=== PATIENT | male | born 1950 | race Caucasian/White ===

== ENCOUNTER → 2020-01-29 13:11 | Outpatient (CLI) | payer OTHER, SELFPAY ==
--- NOTE | ~2020-01-29 | CT_ITS ---
EXAMINATION: CT chest wo con DATE: 01/29/2020 13:33 INDICATION: Tobacco use, emphysema TECHNIQUE: Computed tomography (CT) of the chest was performed without intravenous contrast. The dose -length product (DLP) was 219.83 mGy-cm. Automated exposure control and iterative reconstruction tech [employer] were employed. COMPARISON: 05/03/2015 FINDINGS: Scarring is present in the lung apices. There is severe emphysema. The lungs are free of ac roman opacities. There is no pleural effusion or pneumothorax. Cardiomegaly is noted. There is coronary artery atherosclerosis. Bilateral gynecomastia is noted. There is a 4.2 cm fusiform aneurysm of the ascending aorta. A stable 1.5 x 1.3 cm right hilar lymph node is noted, most likely reactive given in terval stability. There is mild thoracic spondylosis. IMPRESSION: 1. Severe emphysema. 2. Stable fusiform aneurysm of the ascending aorta. Reviewed, dictated and finalized at location B.
== END ==
PROVIDERS: PCP Family Medicine; Visit Provider Family Medicine
DX: J43.9 Emphysema, unspecified (principal); Z72.0 Tobacco use; I71.2 Thoracic aortic aneurysm, without rupture
CPT/HCPCS: 71250

== ENCOUNTER 2021-03-24 14:22 | Outpatient (CLI) | payer OTHER, SELFPAY ==
--- NOTE | ~2021-03-24 | CT_ITS ---
EXAMINATION: CT lung screening DATE: 03/24/2021 14:44 INDICATION: Personal history of tobacco dependence, current smoker with 50 pack year history TECHNIQUE: Computed tomography (CT) of the chest was performed without intravenous contrast. The dose -length product (DLP) was 94.07 mGy-cm. 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 COMPARISON: 01/29/2020 FINDINGS: There is severe emphysema. Scarring is noted in the lung apices. There is a 4 mm nodule of the left lower lobe on image 66. There is mild dependent atelectasis. The lungs are free of focal air space opacities. There is no pleural effusion or pneumothorax. Cardiomegaly is noted. There is calcif ied coronary artery atherosclerosis. There is a stable 4.2 cm fusiform aneurysm of the ascending aort a. No pathologically enlarged thoracic lymph nodes are identified. IMPRESSION: 1. Lung-RADS category 2: Benign appearance or behavior. Continue annual screening with noncontrast lo w-dose chest CT in 12 months. Reviewed, dictated and finalized at location A. IMPRESSION: 1. Lung-RADS category 2: Benign appearance or behavior. Continue annual screeni ng with noncontrast low-dose chest CT in 12 months.
== END 2021-03-24 14:23 | disposition home or self-care (01) ==
LOC: ANHIMG 14:27
PROVIDERS: PCP Family Medicine; Visit Provider Family Medicine
DX: I71.2 Thoracic aortic aneurysm, without rupture (principal); J43.9 Emphysema, unspecified; Z87.891 Personal history of nicotine dependence
CPT/HCPCS: 71271

== ENCOUNTER → 2021-09-12 03:15 | Outpatient (CLI) | payer OTHER, SELFPAY ==
[2021-09-12 10:58] LABS: SARS-CoV-2 RNA PCR Negative
== END ==
PROVIDERS: PCP Family Medicine; Visit Provider Internal Medicine Gastroenterology
DX: Z01.812 Encounter for preprocedural laboratory examination (principal); Z20.822 Contact with and (suspected) exposure to COVID-19
CPT/HCPCS: C9803; U0003; U0005

== ENCOUNTER 2021-09-15 00:06 | Day surgery (SDC) | payer OTHER, SELFPAY ==
[2021-09-01 14:06] VITALS: BMI 24.3
[2021-09-15 06:25] VITALS: BP 128/81; PULSE 62; RESP 18; TEMP 36.1; O2SAT 100
[2021-09-15] MEDS: LACTATED RINGERS 1,000 ML 150 ML IV CONT (06:36)
--- NOTE | 2021-09-15 06:49 | WPDANESEPPF ---
Anes - Initial Pre Proc Eval Procedure: Operation Date: 09/15/21 07:30 Proposed Procedures p Screening Colonoscopy - Phil Valero MD Date/Time: 09/15/21 06:49 Surgeon: Phil Valero MD Pre Op Diagnosis: hx of colon polyps Patient Data Age: 71 Gender: M Height: 1.73 m Weight: 70.8 kg Last Vital Signs Temp 36.1 C L 09/15/21 06:25 Pulse 62 09/15/21 06:25 Resp 18 09/15/21 06:25 BP 128/81 09/15/21 06:25 Pulse Ox 100 09/15/21 06:25 Allergies Allergy/AdvReac Type Severity Reaction Status Date / Time morphine Allergy Severe HIVES Verified 09/15/21 06:24 Home Medications Medication Instructions Recorded Confirmed Type aspirin 81 mg tablet,delayed 81 mg PO DAILY 01/30/20 09/01/21 History release bupropion HCl 150 mg tablet,12 hr 150 mg PO BID #60 tablet 11/30/20 09/01/21 Rx sustained-release fluticasone fur. 100 mcg-umeclid 1 inh INHALATION DAILY #60 each 03/16/21 09/01/21 Rx 62.5 mcg-vilant 25 mcg inhalat.powder tamsulosin 0.4 mg capsule 0.4 mg PO DAILY #90 cap 05/05/21 09/01/21 Rx atorvastatin 40 mg tablet 40 mg PO QPM #90 tablet 07/20/21 09/01/21 Rx lisinopril 2.5 mg tablet 2.5 mg PO BID #180 tablet 07/20/21 09/01/21 Rx Patient hx anesthesia problems: none Family hx anesthesia problems: none Results Review: All pre-operative results and documents have been reviewed as part of the pre-operative evaluation. [facility] Past Medical History Medical History Aortic atherosclerosis Ascending aortic aneurysm Benign essential HTN Borderline diabetes mellitus CAD (coronary artery disease), [place] coronary artery Chronic kidney disease, stage 3a Colon polyp Congestion of nasal sinus COPD (chronic obstructive pulmonary disease) Coronary stent patent Coughing Emphysema of lung Heart attack History of CVA (cerebrovascular accident) without residual deficits History of CT (myocardial infarction) Hypertension Left knee DJD Major depressive disorder, recurrent, moderate Mixed hyperlipidemia Peripheral vascular disease, unspecified Shortness of breath Tobacco abuse Wears glasses Surgical History Surgical History History of hernia repair History of knee surgery meniscus repair, Dr. Yazmin Nunez of cardiac catheterization Family History Family History Other Acute myocardial infarction Arthritis Depression Diabetes mellitus Heart disease Hypertension Social History Social History (System 03/22/21 @ 12:39 by Carley Gardner) Social History: , has a live in partner, retired Smoking packs per day: 1 Smoking cigarettes per day: 20.0 Years smoked: 50 Smoking pack-years: 50.00 Smoking status: Former smoker Tobacco type: cigarettes Second hand tobacco smoke exposure: Yes Smoking end date: 06/25/17 Additional smoking assessment comments: last 2 years 2 ppd Alcohol intake: current Drinks per week: 2 Substance use: never Substance use type: does not use Gender identity (if verbalized by the patient): Male Sexual Orientation (if Verbalized by the Patient): Straight or Heterosexual Spiritual care concerns: No Agree to blood products: Yes Anes - Eval Final PreProcedure Day of Procedure 09/15/21 06:49 Patient weight: normal Heart: regular rate and rhythm Lungs: clear to auscultation and normal air movement Airway: Mallampati scale class II Neurological: alert and oriented Last oral intake: >/= 8 hours ASA classification: III Emergent: no Anesthetic plan: proceed Anesthesia type and monitoring: general GIVS and standard monitoring Results Review: All pre-operative results and documents have been reviewed as part of the pre-operative evaluation. Informed Consent: The patient's anesthetic plan and its attendant risks and benefits were discussed with the patient/fam
--- NOTE | 2021-09-15 07:20 | WPDGICN ---
Assessment and Plan Assessment and plan (1) History of colon polyps: Code(s): Z86.010 - Personal history of colonic polyps Status: Acute Assessment and Plan: Patient has a history of colon polyp removed from the colon 2018. Plan is for surveillance colonoscopy now and consider this at intervals in the future. Further recommendations will be given after endoscopy. GI Consult Note Consult date/time: 09/15/21 07:20 HPI: Everton Ochoa Sr. is a 71 year old male Presents for screening colonoscopy. Patient was found to have benign adenomatous colon polyp removed from the colon 2018. Patient presents today for surveillance colonoscopy. Patient reports current weight appetite and bowel movements are normal. He denies abdominal pain. He has had no bleeding. Family history is noncontributory. Review of Systems Review of Systems: All systems reviewed & are unremarkable except as noted in HPI and below PMFSH Past Medical History Medical History Aortic atherosclerosis Ascending aortic aneurysm Benign essential HTN Borderline diabetes mellitus CAD (coronary artery disease), [place] coronary artery Chronic kidney disease, stage 3a Colon polyp Congestion of nasal sinus COPD (chronic obstructive pulmonary disease) Coronary stent patent Coughing Emphysema of lung Heart attack History of CVA (cerebrovascular accident) without residual deficits History of [place] (myocardial infarction) Hypertension Left knee DJD Major depressive disorder, recurrent, moderate Mixed hyperlipidemia Peripheral vascular disease, unspecified Shortness of breath Tobacco abuse Wears glasses Surgical History Surgical History History of hernia repair History of knee surgery meniscus repair, Dr. Arce Hx of cardiac catheterization Family History Family History Other Acute myocardial infarction Arthritis Depression Diabetes mellitus Heart disease Hypertension Social History Social History (System 03/22/21 @ 12:39 by Carley Gardner) Social History: , has a live in partner, retired Smoking packs per day: 1 Smoking cigarettes per day: 20.0 Years smoked: 50 Smoking pack-years: 50.00 Smoking status: Former smoker Tobacco type: cigarettes Second hand tobacco smoke exposure: Yes Smoking end date: 06/25/17 Additional smoking assessment comments: last 2 years 1/2 ppd Alcohol intake: current Drinks per week: 2 Substance use: never Substance use type: does not use Gender identity (if verbalized by the patient): Male Sexual Orientation (if Verbalized by the Patient): Straight or Heterosexual Spiritual care concerns: No Agree to blood products: Yes Meds Home Medications and Allergies Home Medications Medication Instructions Recorded Confirmed Type aspirin 81 mg tablet,delayed 81 mg PO DAILY 01/30/20 09/01/21 History release bupropion HCl 150 mg tablet,12 hr 150 mg PO BID #60 tablet 11/30/20 09/01/21 Rx sustained-release fluticasone fur. 100 mcg-umeclid 1 inh INHALATION DAILY #60 each 03/16/21 09/01/21 Rx 62.5 mcg-vilant 25 mcg inhalat.powder tamsulosin 0.4 mg capsule 0.4 mg PO DAILY #90 cap 05/05/21 09/01/21 Rx atorvastatin 40 mg tablet 40 mg PO QPM #90 tablet 07/20/21 09/01/21 Rx lisinopril 2.5 mg tablet 2.5 mg PO BID #180 tablet 07/20/21 09/01/21 Rx Allergies Allergy/AdvReac Type Severity Reaction Status Date / Time morphine Allergy Severe HIVES Verified 09/15/21 06:24 Vital Signs Vital Signs - 24 hr 09/15/21 06:25 Temperature 97.0 F L Pulse Rate 62 Respiratory Rate 18 Blood Pressure 128/81 Pulse Oximetry 100 Exam Narrative: Physical exam reveals patient to be alert. Vital signs stable. HEENT exam is unremarkable. Patient is anicteric. Lungs are clear to auscultation an
[2021-09-15 07:58] VITALS: BP 102/62; PULSE 68; RESP 12; O2SAT 97
[2021-09-15 08:08] VITALS: BP 121/71; PULSE 58; RESP 20; O2SAT 100
[2021-09-15 08:18] VITALS: BP 111/76; PULSE 54; RESP 18; O2SAT 96
== END 2021-09-15 08:25 | disposition home or self-care (01) ==
PROVIDERS: PCP Family Medicine; Visit Provider Internal Medicine Gastroenterology
PROC: 0DJD8ZZ Inspection of Lower Intestinal Tract, Via Natural or Artificial Opening Endoscopic (ICD-10-PCS; CPT 45378; principal; 2021-09-15 07:30)
DX: Z12.11 Encounter for screening for malignant neoplasm of colon (principal); K63.5 Polyp of colon; K64.8 Other hemorrhoids; J44.9 Chronic obstructive pulmonary disease, unspecified; I25.10 Atherosclerotic heart disease of native coronary artery without angina pectoris; E78.2 Mixed hyperlipidemia; R73.03 Prediabetes; I12.9 Hypertensive chronic kidney disease with stage 1 through stage 4 chronic kidney disease, or unspecified chronic kidney disease; N18.31 Chronic kidney disease, stage 3a; I25.2 Old myocardial infarction; F33.1 Major depressive disorder, recurrent, moderate; I71.2 Thoracic aortic aneurysm, without rupture; I70.0 Atherosclerosis of aorta; I73.9 Peripheral vascular disease, unspecified; Z95.5 Presence of coronary angioplasty implant and graft; Z86.73 Personal history of transient ischemic attack (TIA), and cerebral infarction without residual deficits; Z87.891 Personal history of nicotine dependence; Z79.82 Long term (current) use of aspirin
CPT/HCPCS: 45385; 88305; C9803; J2704; J7120; U0003; U0005

== ENCOUNTER 2022-03-29 14:46 | Outpatient (CLI) | payer OTHER, SELFPAY ==
--- NOTE | ~2022-03-29 | CT_ITS ---
EXAMINATION: CT lung screening DATE: 03/29/2022 15:27 INDICATION: History of nicotine dependence. TECHNIQUE: Computed tomography (CT) of the chest was performed without intravenous contrast. The dose -length product was 89.35 mGy-cm. COMPARISON: CT dated 03/24/2021 FINDINGS: Heart size normal. No thoracic lymphadenopathy. There is atherosclerosis of the aorta and c oronary arteries. There is a fusiform ascending thoracic aortic aneurysm measuring 4.3 cm. Small hiat al hernia. No significant pleural or pericardial effusion. There is an enlarging left lower lobe nodu le measuring 7 mm. There is moderate emphysema. No endobronchial lesions. No pneumothorax. IMPRESSION: 1. Lung Rads category 4A, suspicious: follow-up low dose CT chest in 3 months or PET/CT scan. Reviewed, dictated and finalized at location B. IMPRESSION: 1. Lung Rads category 4A, suspicious: follow-up low dose CT chest in 3 months o r PET/CT scan.
== END 2022-03-29 14:47 | disposition home or self-care (01) ==
PROVIDERS: PCP Family Medicine; Visit Provider Nurse Practitioner Gerontology
DX: Z12.2 Encounter for screening for malignant neoplasm of respiratory organs (principal); Z87.891 Personal history of nicotine dependence; R91.8 Other nonspecific abnormal finding of lung field
CPT/HCPCS: 71271